=== PATIENT | male | born 1975 | race Caucasian/White ===

== ENCOUNTER 2023-07-25 09:04 | Emergency (ER) | payer SELFPAY | END 2023-07-25 11:48 | disposition home or self-care (01) | LOC: JD.ED 09:04 | DX: S42.022A Displaced fracture of shaft of left clavicle, initial encounter for closed fracture (principal); S00.83XA Contusion of other part of head, initial encounter; F17.210 Nicotine dependence, cigarettes, uncomplicated; W10.9XXA Fall (on) (from) unspecified stairs and steps, initial encounter | CPT/HCPCS: 70450; 70450-26; 70486; 70486-26; 73030-26-LT; 73030-LT; 99283; 99284 ==